=== PATIENT | female | born 1940 | race African-American/Black ===

== ENCOUNTER 2024-11-18 16:51 | Emergency (ER) | payer OTHER ==
[~2024-11-18] VITALS: Ht 167.6 cm; Wt 70.0 kg
[2024-11-18 16:57] VITALS: O2SAT 97
[2024-11-18 18:03] LABS: HEMATOCRIT. 30.6 % (36.0-48.0); HEMOGLOBIN. 9.7 g/dL (12.0-16.0); MEAN PLATELET VOLUME 8.9 fl (7.4-10.4); PLATELET 201 x1000/uL (130-400); RED BLOOD CELL COUNT 4.44 mill/uL (4.2-5.4); RED CELL DISTRIBUTION WIDTH 15.6 % (11.6-14.6)
[2024-11-18 18:21] LABS: CREATININE 1.3 mg/dL (0.6-1.0)
[2024-11-18 18:22] LABS: TROPONIN I HIGH SENSITIVITY 9 ng/L (3.0-34); UREA NITROGEN BLOOD 21 mg/dL (9-23)
[2024-11-18 20:15] LABS: BAND% 3.0 % (1.0-6.0); LYMPHOCYTES % MANUAL 5.0 % (20.0-60.0); MONOCYTES % MANUAL 8.0 % (2.0-8.0); NEUTROPHILS % MANUAL 84.0 % (45.0-75.0); PLATELET ESTIMATE NORMAL
[2024-11-19] MEDS: MORPHINE SULFATE 2 MG/ML INJ (NOT FOR IM USE) IV ONE (02:53)
[2024-11-19] MEDS: ACETAMINOPHEN 1000MG/100ML 100 ML IV ONE (02:55)
[2024-11-19 03:30] VITALS: BP 157/83; PULSE 120; RESP 20; TEMP 37; O2SAT 97
== END 2024-11-19 03:54 | disposition short-term general hospital (02) ==
LOC: ER 16:51 → CMPBEDREQ 11-21 08:08
DX: R49.0 Dysphonia (principal); R06.02 Shortness of breath; I11.0 Hypertensive heart disease with heart failure; I50.9 Heart failure, unspecified; Z88.6 Allergy status to analgesic agent; Z88.8 Allergy status to other drugs, medicaments and biological substances
CPT/HCPCS: 99285; 71045; 80048; 85025; 84484; 36415; 93005; 96365; 96374; 70490; J2270; J0131